=== PATIENT | female | born 1975 | race Caucasian/White ===

== ENCOUNTER 2017-10-25 11:16 | Emergency (ER) | payer OTHER ==
[2017-10-25 11:36] VITALS: TEMP 98.3
[2017-10-25] MEDS ORDERED: Labetalol 5mg/ml (4ml) IVP STA (12:12)
[2017-10-25] MEDS ORDERED: Labetalol 5mg/ml (4ml) ONE (12:57)
--- NOTE | 2017-10-25 13:07 | RAD ---
HISTORY: HTN COMPARISON: No prior. FINDINGS: LUNGS: No active pulmonary disease. PLEURA: No significant pleural effusion identified, no pneumothorax apparent. CARDIOVASCULAR: No radiographic findings to suggest acute or significant cardiovascular disease. OSSEOUS STRUCTURES: No significant abnormalities. VISUALIZED UPPER ABDOMEN: Normal. OTHER FINDINGS: None. IMPRESSION: No active disease.
--- NOTE | 2017-10-25 13:15 | ED PDOC ---
HPI: Hypertension/Hypotension Time Seen by Provider: 10/25/17 12:03 Chief Complaint (Nursing): High Blood Pressure Chief Complaint (Provider): High Blood Pressure History Per: Patient History/Exam Limitations: no limitations Onset/Duration Of Symptoms: Days (x 4) Current Symptoms Are (Timing): Still Present Additional Complaint(s): Gurdeep is a 42 year old female 10 days who presents to the emergency department complaining of posterior headache since Wednesday (4 days). Patient was diagnozed with hypertension during . Patient reports taking during and after Labetalol. Patient talked to OB to increase Labetalol to 200 mg TID. No resolution of headache. Blood pressure is still high 170/100s. Denies vision changes, chest pain or shortness of breath. Patient reports same thing happened in 1st . Patient was given medications, stayed overnight, and symptoms resolved. PMD: No Family Provider Past Medical History Reviewed: Historical Data, Nursing Documentation, Vital Signs Vital Signs: Last Vital Signs Temp 98.3 F 10/25/17 11:35 Pulse 77 10/25/17 11:35 Resp 21 10/25/17 11:35 BP 177/88 H 10/25/17 11:35 Pulse Ox 100 10/25/17 11:35 - Medical History PMH: No Chronic Diseases - Surgical History Surgical History: No Surg Hx - Family History Family History: States: Unknown Family Hx - Home Medications Home Medications: Ambulatory Orders Medication Instructions Recorded Ibuprofen [Motrin] 600 mg PO Q6H PRN #20 tab 10/25/17 Labetalol [Trandate] 200 mg PO TID #30 tab 10/25/17 - Allergies Allergies/Adverse Reactions: Allergies Allergy/AdvReac Type Severity Reaction Status Date / Time No Known Allergies Allergy Verified 10/25/17 11:55 Physical Exam - Reviewed Nursing Documentation Reviewed: Yes Vital Signs Reviewed: Yes - Physical Exam Appears: Positive for: Non-toxic Head Exam: Positive for: ATRAUMATIC, NORMAL INSPECTION, NORMOCEPHALIC Skin: Positive for: Normal Color, Warm, Dry Eye Exam: Positive for: Normal appearance, EOMI, PERRL ENT: Positive for: Normal ENT Inspection Neck: Positive for: Normal Cardiovascular/Chest: Positive for: Regular Rate, Rhythm Respiratory: Positive for: Normal Breath Sounds. Negative for: Respiratory Distress Gastrointestinal/Abdominal: Positive for: Normal Exam Back: Positive for: Normal Inspection Extremity: Positive for: Normal ROM. Negative for: Deformity Neurologic/Psych: Positive for: Alert, Oriented (x 3) - Laboratory Results Result Diagrams: 10/25/17 13:25 10/25/17 13:25 - ECG O2 Sat by Pulse Oximetry: 100 (RA) Pulse Ox Interpretation: Normal Medical Decision Making Medical Decision Making: Time: 12:09 Impression: Elevated Blood Pressure and Headache Plan: - EKG - CMP - CBC - Partial Thromboplastin - Prothrombin Time - Chest X-Ray - Dilaudid 0.5 mg IVP STAT - Trandate 20 mg IVP STAT - Urinalysis Time: 12:17 - CT Head without Contrast Time: 13:05 Chest X-Ray FINDINGS: LUNGS: No active pulmonary disease. PLEURA: No significant pleural effusion identified, no pneumothorax apparent. CARDIOVASCULAR: No radiographic findings to suggest acute or significant cardiovascular disease. OSSEOUS STRUCTURES: No significant abnormalities. VISUALIZED UPPER ABDOMEN: Normal. OTHER FINDINGS: None. IMPRESSION: No active disease. Time: 13:25 CT Head without Contrast FINDINGS: HEMORRHAGE: No acute parenchymal, subarachnoid or extra-axial hemorrhage. BRAIN: No focal areas of abnormal attenuation seen within the substance of the brain. No evidence of edema. No parenchymal nor extra-axial masses or collections. Ventricular and sulcal size are within range of normal for this patient's stated age. VENTRICLES: No obstructive hydrocephalus. CALVARIUM: There are no acute calvarial fractures. PARANASAL SINUSES: Unremarkable as visualized. No significant inflammatory changes. MASTOID AIR CELLS: Unremarkable as visualized. No inflammatory changes. OTHER FINDINGS: None. IMPRESSION: No acute intracranial hemorrhage. 14:[address] Tiffanie Simms (private [facility], ), agrees with discharge home after BP controlled. 15:40 Pt feels much better, HERNANDEZ resolved, BP 133/71. Pt advised to pump and dump today due to Dilaudid administration. Scribe Attestation: Documented by Hubert Plascencia, acting as a scribe for Fatemeh Pascal MD. Provider Scribe Attestation: All medical record entries made by the Scribe were at my direction and personally dictated by me. I have reviewed the chart and agree that the record accurately reflects my personal performance of the history, physical exam, medical decision making, and the department course for this patient. I have also personally directed, reviewed, and agree with the discharge instructions and disposition. Disposition - Clinical Impression Clinical Impression: headache, hypertension - Patient ED Disposition Is Patient to be Admitted: No - Disposition Disposition: Routine/Home Disposition Time: 15:46 Condition: IMPROVED Additional Instructions: FOLLOW-UP WITH YOUR [facility] WITHIN 2 DAYS FOR REEVALUATION. Prescriptions: Ibuprofen [Motrin] 600 mg PO Q6H PRN #20 tab PRN Reason: Pain, Moderate (4-7) Labetalol [Trandate] 200 mg PO TID #30 tab Instructions: Hypertension (ED), General Headache (ED) Forms: [employer] (Polish)
--- NOTE | 2017-10-25 13:26 | CT ---
PROCEDURE: CT HEAD WITHOUT CONTRAST. HISTORY: Elevated BP, post-partem, HERNANDEZ. COMPARISON: No prior study available comparison. TECHNIQUE: Contiguous helical/ transaxial computed tomography images were obtained through the head/brain without intravenous contrast. Radiation dose: Total exam DLP = 853.74 mGy-cm. This CT exam was performed using one or more of the following dose reduction techniques: Automated exposure control, adjustment of the mA and/or kV according to patient size, and/or use of iterative reconstruction technique. FINDINGS: HEMORRHAGE: No acute parenchymal, subarachnoid or extra-axial hemorrhage. BRAIN: No focal areas of abnormal attenuation seen within the substance of the brain. No evidence of edema. No parenchymal nor extra-axial masses or collections. Ventricular and sulcal size are within range of normal for this patient's stated age. VENTRICLES: No obstructive hydrocephalus. CALVARIUM: There are no acute calvarial fractures. PARANASAL SINUSES: Unremarkable as visualized. No significant inflammatory changes. MASTOID AIR CELLS: Unremarkable as visualized. No inflammatory changes. OTHER FINDINGS: None. IMPRESSION: No acute intracranial hemorrhage.
[2017-10-25 13:35] LABS: BASO # 0.1 K/uL (0.0-0.2); BASO % 0.9 % (0.0-2.0); EOS # 0.2 K/uL (0.0-0.7); EOS % 2.9 % (0.0-4.0); HEMOGLOBIN 11.2 g/dL (12.0-16.0); LYMPH # 1.9 K/uL (1.0-4.3); LYMPH % 22.4 % (20.0-40.0); MEAN CELL VOLUME 92.2 fl (81.0-99.0); MEAN CORPUSCULAR HEMOGLOBIN 31.9 pg (27.0-31.0); MEAN CORPUSCULAR HGB CONC 34.6 g/dL (33.0-37.0); MEAN PLATELET VOLUME 7.8 fl (7.2-11.7); MONO # 0.6 K/uL (0.0-0.8); MONO % 7.1 % (0.0-10.0); NEUT # 5.6 K/uL (1.8-7.0); NEUT % 66.7 % (50.0-75.0); NRBC % 0.2 % (0.0-0.0); RBC 3.51 Mil/uL (3.80-5.20); RED CELL DISTRIBUTION WIDTH 13.4 % (11.5-14.5); WHITE BLOOD COUNT 8.4 K/uL (4.8-10.8)
[2017-10-25 13:36] LABS: SQUAMOUS EPITHIAL 1 /hpf (0-5); URINE BILIRUBIN NEGATIVE (NEGATIVE); URINE BLOOD MODERATE (NEGATIVE); URINE CLARITY CLEAR (Clear); URINE COLOR STRAW (YELLOW); URINE GLUCOSE (UA) NEG (Normal); URINE LEUKOCYTE ESTERASE NEG Leu/uL (Negative); URINE NITRATE NEGATIVE (NEGATIVE); URINE PROTEIN NEGATIVE (NEGATIVE); URINE UROBILINOGEN 0.2-1.0 mg/dL (0.2-1.0)
[2017-10-25 13:49] LABS: PARTIAL THROMBOPLASTIN TIME 29.7 Seconds (25.6-37.1); PROTHROMBIN TIME 11.1 Seconds (9.8-13.1)
[2017-10-25 13:52] LABS: ALB/GLOB RATIO 1.3 (1.0-2.1); ALBUMIN 3.9 g/dL (3.5-5.0); CALCIUM 9.5 mg/dL (8.4-10.2); GFR AFRICAN-AMERICAN > 60; GFR NON-AFRICAN AMERICAN > 60
[2017-10-25 13:57] LABS: ALT/SGPT 25 U/L (9-52); AST/SGOT 35 U/L (14-36); BLOOD UREA NITROGEN 14 mg/dl (7-17)
--- NOTE | 2017-10-25 13:59 | CP.PCM.PN ---
Subjective - Date & Time of Evaluation Date of Evaluation: 10/25/17 Time of Evaluation: 13:55 - Subjective Subjective: Patient evaluated in ER for possible spinal headache. Patient is s/p section 10 days ago at outside facility. She did not have any symptoms during her hospital stay and current symptom of pounding headache began 10/22/17 and is not postural, which does not fit with spinal headache. Patient also has history of migraines. Patient was offered 4% lidocaine sphenopalatine ganglion block, but did not did not want one since she said that she has had these blocks in the past for migraines but her headache feels different this time. BP while interviewing patient was 189/110 so most likely the headache is attributed to hypertension. Objective - Vital Signs/Intake and Output Vital Signs (last 24 hours): Temp Pulse Resp BP Pulse Ox 98.3 F 77 21 177/88 H 100 10/25/17 11:35 10/25/17 11:35 10/25/17 11:35 10/25/17 11:35 10/25/17 13:41 - Medications Medications: Current Medications Hydralazine HCl (Apresoline) 10 mg IV STAT STA Stop: 10/25/17 13:45 - Labs Labs: 10/25/17 13:25 10/25/17 13:25 PT 11.1 Seconds (9.8-13.1) 10/25/17 13:25 INR 1.0 (0.9-1.2) 10/25/17 13:25 APTT 29.7 Seconds (25.6-37.1) 10/25/17 13:25
[2017-10-25 16:29] VITALS: RESP 18
[2017-10-25 20:24] VITALS: BP 133/71; PULSE 62; O2SAT 99
--- NOTE | 2017-10-26 08:44 | CARD ---
APPROVED REPORT EKG Measurement Heart [id number] <Conclusion> Normal sinus rhythm Right bundle branch block Abnormal ECG
== END 2017-10-25 16:40 | disposition home or self-care (01) ==
LOC: H.ER 11:16
DX: R51 Headache (principal); I10 Essential (primary) hypertension
CPT/HCPCS: 70450; 71045; 80053; 81003; 85025; 85610; 85730; 93005; 96374; 96375; 99284; J1170